=== PATIENT | male | born 1990 | race Caucasian/White ===

== ENCOUNTER 2021-02-27 19:26 | Emergency (ER) | payer OTHER ==
[2021-02-28 02:20] LABS: HEMOGLOBIN 15.1 gm/dl (14.0-17.5); RED BLOOD COUNT 4.62 M/UL (4.20-5.50); WHITE BLOOD COUNT 11.3 K/UL (4.5-11.0)
[2021-02-28 02:44] LABS: BUN/CREATININE RATIO 24 (0-10)
[2021-02-28] MEDS ORDERED: ZOFRAN ODT 4 MG4 MG PO (04:12)
== END 2021-02-28 05:16 | disposition home or self-care (01) ==
LOC: ER1 19:26
PROVIDERS: Physician Assistant
DX: R11.2 Nausea with vomiting, unspecified (principal); R10.31 Right lower quadrant pain; R10.32 Left lower quadrant pain; R19.7 Diarrhea, unspecified; Z20.822 Contact with and (suspected) exposure to COVID-19
CPT/HCPCS: 80053; 85025; 99284; U0002